=== PATIENT | female | born 1975 | race Caucasian/White ===

== ENCOUNTER 2018-09-20 12:57 | Outpatient (REF) | payer OTHER, SELFPAY ==
--- NOTE | 2018-09-20 11:00 | PAPFT_PTH ---
PATIENT: Skylar Lynn LOC: [facility]#:[id number] AGE/SX: 42/F ROOM: RE09/20/[address]: Ember Cano : 1975 BED: DIS: 09/20/2018 SPEC #: [id number] RECD: 09/21/18 13:02 STATUS: RAFFY LEY #: [id number] NELIA: 09/20/18 11:[address]: Ember Cano DEPT: [facility] Cytology RECD BY: Marisela Shah ENTERED: 09/21/18 13:03 SP TYPE: PAPFT OTHR DR: Hannah Duckworth Tissues: 1 - CX/ENDOCX FOR PAP SMEARS Procedures: PAP THIN PREP/UVM Screening HPV DNA PROBE Comments: [id number]
== END 2018-09-20 13:17 ==
LOC: NCHCN 12:57
PROVIDERS: PCP Family Medicine; Visit Provider Nurse Practitioner
DX: Z00.00 Encounter for general adult medical examination without abnormal findings (principal); Z12.4 Encounter for screening for malignant neoplasm of cervix; Z11.51 Encounter for screening for human papillomavirus (HPV)
CPT/HCPCS: 88142; 87624

== ENCOUNTER 2019-04-18 18:14 | Outpatient (REF) | payer OTHER, SELFPAY ==
[2019-04-18 19:16] LABS: HCT 34.9 % (36.0-46.0); HGB 11.7 g/dL (12.0-15.5); Mean Corp. HGB Concentration 33.5 g/dL (32.0-36.0); Mean Corpuscular Hemoglobin 32.3 pg (27.0-33.0); Mean Corpuscular Volume 96.4 fL (80-95); Mean Platelet Volume 10.1 fL (8.0-11.0); Platelet Count 312 x1000/uL (130-400); RBC 3.62 m/cumm (4.00-5.20); RBC Distribution Width 11.7 % (11.7-14.6); White Blood Cell Count 5.75 k/cumm (4.4-10.8)
[2019-04-18 19:38] LABS: Calculated LDL 80 mg/dL; Cholesterol 161 mg/dL (50-200); HDL Cholesterol 61 mg/dL (40-60); TSH 2.72 uIU/mL (0.36-3.74); Triglyceride 101 mg/dL (30-150)
== END 2019-04-18 18:34 ==
LOC: NCHCN 18:14
PROVIDERS: PCP Family Medicine; Visit Provider Nurse Practitioner
DX: Z00.00 Encounter for general adult medical examination without abnormal findings (principal); L65.9 Nonscarring hair loss, unspecified; Z13.220 Encounter for screening for lipoid disorders
CPT/HCPCS: 80061; 85027; 84443

== ENCOUNTER 2019-04-21 12:25 | Outpatient (REF) | payer OTHER, SELFPAY ==
[2019-04-21 19:23] LABS: Iron 136 ug/dL (50-175); Total Iron Binding Capacity 258 ug/dL (250-450); Transferrin Sat 53 % (15-50)
[2019-04-21 19:43] LABS: Ferritin 52 ng/mL (8-388)
[2019-04-22 09:49] LABS: Vitamin B12 1557 pg/mL (193-986)
== END 2019-04-21 12:45 ==
LOC: NCHCN 12:25
PROVIDERS: PCP Family Medicine; Visit Provider Nurse Practitioner
DX: R53.83 Other fatigue (principal)
CPT/HCPCS: 82607; 82728; 82746; 83540; 83550

== ENCOUNTER → 2022-03-18 00:55 | Outpatient (CLI) | payer OTHER, SELFPAY ==
--- NOTE | 2022-03-18 07:30 | DI.MAMMO_ITS ---
Exam(s) MAMMO SCREENING EXAM: MAMMO SCREENING CLINICAL HISTORY: SCREENING, Z12.39. TECHNIQUE: Bilateral full field digital CC and MLO mammographic images were obtained with 3D tomosyn thesis and utilizing computer aided detection (CAD). COMPARISON: None. This is a baseline mammogram on this 46-year-old patient. FINDINGS: Fibroglandular tissue pattern is moderately dense, this somewhat decreasing the sensitivity of the ma mmogram for finding hidden underlying lesions. There are no CAD designations. There are no new spiculated masses nor malignant appearing microcalcification groups. There is no significant architectural distortion nor skin thickening-retraction. IMPRESSION: No radiographic evidence of malignancy. BI-RADS Category 1 - Negative Breast Density - Category C - Heterogeneously dense Breast density Category C or D implies that the patient has dense breast tissue. Dense breast tissue can make it harder to find cancer on a mammogram. Dense breast tissue is also associated with an incr eased risk of breast cancer. This information about the result of the mammogram report was provided to the patient to raise their awareness. Use this report when you speak with the patient about their risks for breast cancer, which includes their family history. At that time, you may recommend additional screening tests (Ultrasoun d or MRI) as these tests may add significant information. A negative radiographic report should not delay biopsy if a dominant or clinically suspicious mass is present. Up to ten percent of cancers are not identified on mammography. A negative report may reinforce clinical impression. Adenosis and dense breasts may obscure an underlying neoplasm. False positive reports average 6 to 10%. Patient will receive a letter notifying them of these results.
== END ==
PROVIDERS: PCP Family Medicine; Visit Provider Physician Assistant
DX: Z12.31 Encounter for screening mammogram for malignant neoplasm of breast (principal); R92.8 Other abnormal and inconclusive findings on diagnostic imaging of breast
CPT/HCPCS: 77063; 77067

== ENCOUNTER 2024-01-07 13:22 | Outpatient (REF) | payer BC, SELFPAY ==
--- NOTE | 2024-01-07 13:30 | PAPFT_PTH ---
PATIENT: Skylar Lynn LOC: [facility] U#:[id number] AGE/SX: 48/F ROOM: RE01/07/[address]: Skylar Anderson MD : 1975 BED: DIS: 01/07/2024 SPEC #: [id number] RECD: 01/07/24 14:56 STATUS: RAFFY RETang #: [id number] NELIA: 01/07/24 13:[address]: Skylar Anderson DEPT: [facility] Cytology RECD BY: Kenia Land ENTERED: 01/07/24 14:57 SP TYPE: PAPFT OTHR DR: Hannah Duckworth Tissues: 1 - CX/ENDOCX FOR PAP SMEARS Procedures: PAP THIN PREP/UVM Screening HPV DNA PROBE Comments: [id number] (HPV 16 & 18/45)
== END 2024-01-07 13:23 | disposition home or self-care (01) ==
LOC: LBN 13:22
PROVIDERS: PCP Family Medicine; Visit Provider Obstetrics & Gynecology
DX: Z12.4 Encounter for screening for malignant neoplasm of cervix (principal); N72 Inflammatory disease of cervix uteri
CPT/HCPCS: 88142; 87624

== ENCOUNTER 2024-03-29 01:35 | Outpatient (CLI) | payer BC, SELFPAY ==
--- NOTE | 2024-03-29 | DI.MAMMO_ITS ---
Exam(s) MAMMO SCREENING EXAM: MAMMO SCREENING CLINICAL HISTORY: SCREENING MAMMO Z12.31 TECHNIQUE: Mammograms were interpreted according to the usual protocol including computer analysis w [employer] CAD system, tomosynthesis and C-view imaging. COMPARISON: 2021 FINDINGS: The breasts are composed of heterogeneously dense fibroglandular densities, Breast Density category C . No suspicious masses or suspicious microcalcifications are seen. No skin thickening or abnormal axillary lymph nodes are seen. There has been no significant change from prior exams. IMPRESSION: BI-RADS Category 1, Negative mammogram. Yearly screening mammography is recommended. Breast Density Category C, heterogeneously Dense. The mammogram demonstrates the patient's breast tissue is dense. Dense breast tissue is very common a nd is not abnormal but dense breast tissue can make it harder to find cancer on a mammogram. Also, de nse breast tissue may increase breast cancer risk. This information about the result of the mammogram report was provided to the patient to raise their awareness. Use this report when you speak with the patient about their risks for breast cancer, which includes their family history. At that time, you may recommend additional screening tests (Ultrasound or MRI) as they might be useful based on their r isk. A negative radiographic report should not delay biopsy if a dominant or clinically suspicious mass is present. Up to ten percent of cancers are not identified on mammography. A negative report may reinforce clinical impression. Adenosis and dense breasts may obscure an underlying neoplasm. False positive reports average 6 to 10%.
== END 2024-03-29 01:55 ==
LOC: DI 01:36
PROVIDERS: PCP Family Medicine; Visit Provider Physician Assistant
DX: Z12.31 Encounter for screening mammogram for malignant neoplasm of breast (principal)
CPT/HCPCS: 77063; 77067

== ENCOUNTER 2024-07-22 14:22 | Outpatient (REF) | payer BC, SELFPAY ==
[2024-07-22 15:44] LABS: HCT 38.7 % (36.0-46.0); MCH 32.3 pg (27.0-33.0); MCHC 33.6 % (32.0-36.0); MCV 96 fL (80-95); MPV 10.3 fL (8.0-11.0); Platelet Count 293 10^3/uL (130-400); RBC 4.02 10^6/uL (3.93-5.22); RDW 11.6 % (11.7-14.6); RDW-SD 40.8 fL; WBC 4.84 10^3/uL (4.4-10.8)
[2024-07-22 15:55] LABS: ALT 18 U/L (14-59); AST 19 U/L (15-37); Albumin 4.1 g/dL (3.4-5.0); Alkaline Phosphatase 42 U/L (46-116); BUN 14 mg/dL (7-18); Bilirubin, Total 0.42 mg/dL (0.2-1.0); CREATININE 0.8 mg/dL (0.55-1.02); Calcium 9.2 mg/dL (8.5-10.1); Calculated LDL 128 mg/dL (<100); Chloride 104 mmol/L (98-107); Cholesterol 223 mg/dL (<200); Estimated GFR 90.83 (mL/min/1.73m2); Glucose 90 mg/dL (74-106); HDL Cholesterol 83 mg/dL (40-60); Potassium 4.4 mmol/L (3.5-5.1); Sodium 141 mmol/L (136-145); Total Protein 7.4 g/dL (6.4-8.2); Triglyceride 60 mg/dL (<150)
[2024-07-22 16:30] LABS: Hemoglobin A1C 5.2 % (<5.7)
== END 2024-07-22 14:23 | disposition home or self-care (01) ==
LOC: NCHCN 14:22
PROVIDERS: PCP Physician Assistant; Visit Provider Physician Assistant
DX: Z13.220 Encounter for screening for lipoid disorders (principal); D64.9 Anemia, unspecified; Z13.1 Encounter for screening for diabetes mellitus
CPT/HCPCS: 80053; 80061; 85027; 83036

== ENCOUNTER 2024-10-03 11:28 | Day surgery (SDC) | payer BC, SELFPAY ==
--- NOTE | 2024-10-02 08:32 | W.PM.DSUDISC ---
Date of service: 10/03/24 Discharge Plan Disposition Patient Disposition: Home Condition: Good Discharge Details Reason For Visit: Screening colonoscopy Attending Provider: Jesse Thapa Primary Care Provider: Trell Smith Home Meds and New Rx's Prescriptions: Continued lisdexamfetamine [Vyvanse] 20 mg capsule 20 mg PO DAILY escitalopram oxalate 10 MG tablet 10 mg PO DAILY Qty: 30 Discontinued bisacodyl [Dulcolax (bisacodyl)] 5 mg tablet,delayed release (DR/EC) 5 mg PO ONCE Qty: 4 0RF Rx Instructions: Take per colonoscopy instructions provided by ordering providers office polyethylene glycol 3350 17 gram/dose powder 17 g PO ONCE Qty: 238 0RF Rx Instructions: Take per colonoscopy instructions provided by ordering providers office Discharge Instructions Instructions: Colon polyps Additional Instructions: Skylar was great meeting you today, I hope you are comfortable during the procedure and the make a quick recovery. Everything went very smoothly. I did find, and remove a total of 4 polyps today. 2 of these were medium in size, the other 2 were quite small. None of them have any features that are particularly worrisome to the naked eye. All of these will be sent off for testing, once I have the report of that analysis, I will be in touch with recommendations regarding future colonoscopies. Those results usually take about a week or so to get back, but as soon as I have them I will be in touch. 1. If tolerated, consume a soft, low fiber diet for 1-2 days. 2. Do not drive, drink alcohol, operate machinery, make critical decisions, or do activities that require coordination or balance for 24 hours. 3. Because air was put into your colon during the procedure, expelling air from your rectum (passing gas or farting) is normal. 4. You may not have a bowel movement for 1-3 days because of the colonoscopy prep. This is normal. 5. Go directly to the emergency room if you notice any of the following: Develop chills (warm to touch), or if you have a thermometer and your temperature is above 101 Difficulty breathing or difficultly swallowing Persistent vomiting Severe abdominal pain, other than gas cramps Severe chest pain Black, tarry stools Any bleeding ? exceeding one tablespoon 6. Call your physician if the site where your intravenous was started becomes red, swollen, painful, and warm to touch. 7. Your physician has reviewed your pre-procedure medications. Please continue to take those medications as previously ordered. You will be given specific information/education regarding any changes to your medications before leaving. Activity:: Activity as Tolerated Diet:: As Tolerated Discharge Orders Discharge Orders: Discharge Order (Routine); Ordered 10/02/24 Ordered By: Jesse Thapa DS: Diagnosis Discharge Diagnosis (1) Encounter for screening colonoscopy: Status: Acute Asessment and Plan: Follow-up on polypectomy results
--- NOTE | 2024-10-02 08:33 | W.COLOREPORT ---
Date of service: 10/03/24 Time of Service: 14:04 Colonoscopy Report Date of procedure: 10/03/24 Pre-op diagnosis general: Screening colonoscopy Post-op diagnosis procedure note: other (Colon polyps) Procedure: Colonoscopy with polypectomy Surgeon: Jesse Thapa Anesthesia Type: General:No Airway Estimated blood loss (mL): 10 Pathology: other (0.75 cm cecal polyp, 0.5 cm flat ascending colon polyp, 0.25 cm pedunculated polyp at 65 cm, 0.25 cm pedunculated polyp at 60 cm) Complications: None Disposition: same day Indications: Skylar is a 48-year-old woman with a positive screening Cologuard test. She needs a follow-up screening colonoscopy Prep: Miralax/Dulcolax Procedure Start Time: 13:08 Procedure End Time: 13:51 Retraction Time: 34 Findings: 0.75 cm cecal polyp, 0.5 cm flat ascending colon polyp, 0.25 cm pedunculated polyp at 65 cm, 0.25 cm pedunculated polyp at 60 cm Procedure Description: After the induction of anesthesia, and with the patient in left lateral decubitus position, I began by performing an external anorectal exam.? Perineum and skin were normal, as was the anal verge.? There was no evidence of external hemorrhoids.? Next, I performed a digital rectal exam.? I did not appreciate any abnormal findings.? Next, I advanced a colonoscope into the rectal vault.? I performed retroflexion.? This appeared normal.? Using insufflation, I then advanced the colonoscope beyond the rectal folds and into the sigmoid colon before advancing towards the cecum.? The quality of the prep was excellent.? The scope was noted to be in the cecum by identification of the ileocecal valve and appendiceal orifice.? Just to the top portion of the cecum, slightly above the ileocecal valve was a 0.75 cm carpeting polyp. Narrowband imaging was used to assist with the analysis. Features seemed most consistent with adenomatous polyp. This was removed in piecemeal with cold forceps. Periphery of the lesion was cauterized. Resection appeared complete. I then began withdrawing the colonoscope using repeated irrigation as necessary for full evaluation of the colonic mucosa. Another polyp was detected in the ascending colon. This was also quite flat, and I would estimate 0.5 cm in its largest dimension. This was removed with a energize snare polypectomy. There was minimal bleeding. ?2 more polyps were detected at 65, and 60 cm beyond the anal verge. Each of these was less than 0.25 cm in size. Both of these were removed with cold forceps without issues. Once the scope was withdrawn to the level of the rectum, great care was taken to examine portions of the rectal folds.? Finally, the scope was withdrawn and the patient was brought to the same-day surgery recovery unit as the anesthetic wore off. ?The findings and instructions were shared with the patient prior to discharge. Hartford Bowel Prep Hartford Bowel Prep Right Colon: 3 Left Colon: 3 Transverse Colon: 3 Total Score: 9
[2024-10-03 11:42] VITALS: BP 110/84; PULSE 71; RESP 14; TEMP 36.6; O2SAT 98
[2024-10-03] MEDS: Lactated Ringers 1,000 ML 80 ML IV (11:50)
--- NOTE | 2024-10-03 12:27 | W.ANESPRE ---
General Info Date of Service Date Performed: 10/03/24 Height: 5 ft 4 in Weight: 60.9 kg Body Mass Index (BMI): 23.0 Surgical Procedure: Operation Date: 10/03/24 12:35 Proposed Procedure Side Surgeon p Giovani Thapa MD Meds Allergies and Home Medications Allergies Allergy/AdvReac Type Severity Reaction Status Date / Time No Known Allergies Allergy Verified 10/03/24 11:54 Home Medication ?Medication ?Instructions ?Recorded escitalopram oxalate 10 mg tablet 10 mg PO DAILY #30 tabs 06/06/13 lisdexamfetamine 20 mg capsule 20 mg PO DAILY 01/07/24 (Vyvanse) Current Visit Medications: Current Medications Generic Name Dose Route Start Last Admin Trade Name Freq PRN Reason Stop Dose Admin Ringer's Solution 1,000 mls @ 80 mls/hr 10/03/24 06:00 IV 10/03/24 23:59 INFUSION MALDONADO IV Miscellaneous Supplies 1 each 10/03/24 06:00 Iv Access IV 10/03/24 23:59 DIRECTED MALDONADO Sodium Chloride 0 ml 10/03/24 06:00 Normal Saline Flush 10 Ml Syr IV 10/03/24 23:59 PRN PRN Sodium Chloride 0 ml 10/03/24 06:00 Normal Saline 10 Ml Vial IJ 10/03/24 23:59 DIRECTED PRN Sterile Water 0 ml 10/03/24 06:00 Water,Injection,Sterile 10 Ml Vial IJ 10/03/24 23:59 DIRECTED PRN PFSH Active Problems Active Problems: Problem Status Onset Code Encounter for screening colonoscopy Acute Z12.11 Positive colorectal cancer screening using Cologuard test Acute R19.5 Medical History Medical History ADHD Anxiety Surgical History Surgical History Biopsy, Lymph Node L inguinal Negative 2011 Tobacco Smoking/Tobacco Use Status: Former Tobacco Use Passive smoking exposure: No Alcohol Alcohol Intake: current Alcohol intake frequency: a few times a week Substance Use Substance use: Never Substance use type: does not use Prental History History Para Hx # Term Pregnancies 2 Multiple births Hx # Pregnancies Ectopic pregnancies AB induced Hx Number of Living Children 2 AB spontaneous 1 Vital Signs and Lab Results Vital Signs Most Recent Vital Signs in EMR: Most Recent Vital Signs Temp Pulse Resp BP Pulse Ox 36.6 C 71 14 110/84 98 10/03/24 11:42 10/03/24 11:42 10/03/24 11:42 10/03/24 11:42 10/03/24 11:42 Point of Care Results Point of Care Results: POC- Test(urine) Negative 10/03/24 11:50 Lab Results Blood Type / Crossmatch: No Data to Display Complete Blood Count: No Data to Display Complete Metabolic Panel: No Data to Display Liver Function Panel: No Data to Display Coagulation Panel: No Data to Display Cardiac Panel: No Data to Display Arterial Blood Gas: No Data to Display Venous Blood Gas: No Data to Display Pancreas Panel: No Data to Display Thyroid Panel: No Data to Display Infectious Disease: No Data to Display Blood Cultures: No Data to Display Toxicology Panel: No Data to Display Panel: No Data to Display Anesthesia Assessment and Plan Anesthesia History Personal History: No History of Anesthesia Complications Family History: No Family History of Anesthesia Complications Exercise Tolerance Exercise Tolerance: Metabolic Equivalents>4 Pertinent Negatives Pertinent Negatives: No Symptoms of GERD, No Major Cardiovascular Symptoms or Complaints, No Major Pulmonary Symptoms or Complaints and No History of CVA/TIA Cardiac & Pulmonary Exam Cardiac Exam: Normal S1/S2 Heart Sounds Pulmonary Exam: Clear Bilateral Breath Sounds Implantable Cardiac Device Does patient have a Pacemaker or an ICD?: No Airway Exam Known Difficult Airway: No Mallampati Class: 1 Mouth Opening: Normal (> 3cm) Thyromental Distance: Greater than 3 cm Neck Range of Motion: Full ROM Neck Circumference: Normal Teeth Condition: Normal Dentition ASA Classification ASA Score: ASA 2 Emergency Case?: No NPO Status NPO Status: NPO Clears >2 hours, Solids >8 hours Status Status: Negative HCG Anesthesia Plan Resuscitation Status: Full Code Anesthesia Technique: General Anesthesia Airway Planned: Natural Airway Monitors Used: Standard Monitors
[2024-10-03 12:43] VITALS: BMI 23.0
--- NOTE | 2024-10-03 13:24 | BOWEL_PTH ---
PATIENT: Skylar Lynn LOC: [facility] U#:[id number] AGE/SX: 48/F ROOM: RE10/03/[address]: Jesse Thapa MD : 1975 BED: DIS: 10/03/2024 SPEC #: [id number] RECD: 10/03/24 17:02 STATUS: RAFFY RE #: [id number] NELIA: 10/03/24 13:[address]: Jesse Thapa DEPT: Surgical Specimen RECD BY: Marisela Shah ENTERED: 10/03/24 17:03 SP TYPE: Bowel OTHR DR: Trell Smith Tissues: 1 - BIOPSY BOWEL 2 - BIOPSY BOWEL 3 - BIOPSY BOWEL 4 - BIOPSY BOWEL Procedures: GROSS AND MICRO LEVEL 4 Comments: [id number]
[2024-10-03 13:58] VITALS: BP 113/76; PULSE 87; RESP 16; TEMP 36.3; O2SAT 96
--- NOTE | 2024-10-03 14:08 | W.ANESPOSTOP ---
Postoperative Evaluation Date, Time and Location Date Performed: 10/03/24 Time Performed: 14:09 Patient Location: Day Surgery Unit Vital Signs Most Recent Imported Vital Signs: Most Recent Vital Signs Temp Pulse Resp BP Pulse Ox 36.3 C L 87 16 113/76 96 10/03/24 13:58 10/03/24 13:58 10/03/24 13:58 10/03/24 13:58 10/03/24 13:58 Pain Score Most Recent Pain Score: Most Recent Pain Score Pain Level 0 10/03/24 13:58 Assessment Mental Status: Awake (Alert & Oriented to Patient Baseline) Airway and Respiratory Function: Patent airway with normal (patient baseline) respiratory exam Cardiovascular Function: Hemodynamically Stable Hydration Status: Adequately Hydrated Nausea & Vomiting: No Nausea or Vomiting Pain: Pt. Denies Any Pain Peripheral Nerve Block: Patient did not receive a nerve block
[2024-10-03 14:24] VITALS: BP 110/75; PULSE 66; RESP 16; TEMP 36.4; O2SAT 100
== END 2024-10-03 14:47 | disposition home or self-care (01) ==
LOC: SUR 11:28
PROVIDERS: PCP Physician Assistant; Visit Provider Surgery
PROC: 0DJD8ZZ Inspection of Lower Intestinal Tract, Via Natural or Artificial Opening Endoscopic (ICD-10-PCS; CPT 45378; principal; 2024-10-03 12:30)
DX: Z12.11 Encounter for screening for malignant neoplasm of colon (principal); D12.2 Benign neoplasm of ascending colon; D12.4 Benign neoplasm of descending colon; D12.0 Benign neoplasm of cecum
CPT/HCPCS: 45385; 45380; 81025; 88305; J2003; J2405; J2704

== ENCOUNTER 2025-04-18 00:21 | Outpatient (CLI) | payer BC, SELFPAY ==
--- NOTE | 2025-04-18 | DI.MAMMO_ITS ---
Exam(s) MAMMO SCREENING EXAM: MAMMO SCREENING CLINICAL HISTORY: Z12.31 screening TECHNIQUE: Bilateral full field digital CC and MLO mammographic images were obtained with 3D tomosynthesis and utilizing computer aided detection (CAD). COMPARISON: Comparison is made with prior examinations. FINDINGS: Masses/Architectural Distortion: No suspicious masses or areas of architectural distortion are present. Microcalcifications: No suspicious pleomorphic-type are seen. Skin Thickening/Nipple Retraction: None. IMPRESSION: 1. No significant interval change with no specific features of malignancy noted. 2. Unless there is more urgent need, screening mammography is recommended, as per [place] [employer] guidelines. BI-RADS Category 1 - Negative Breast Density - Category C - The breast are heterogeneously dense, which may obscure small masses. Breast density Category C or D implies that the patient has dense breast tissue. Dense breast tissue can make it harder to find cancer on a mammogram. Dense breast tissue is also associated with an increased risk of breast cancer. This information about the result of the mammogram report was provided to the patient to raise their awareness. Use this report when you speak with the patient about their risks for breast cancer, which includes their family history. At that time, you may recommend additional screening tests (Ultrasound or MRI) as these tests may add significant information. A negative radiographic report should not delay biopsy if a dominant or clinically suspicious mass is present. Up to ten percent of cancers are not identified on mammography. A negative report may reinforce clinical impression. Adenosis and dense breasts may obscure an underlying neoplasm. False positive reports average 6 to 10%. Patient will receive a letter notifying them of these results.
== END 2025-04-18 00:41 ==
LOC: DI 00:21
PROVIDERS: PCP Physician Assistant; Visit Provider Obstetrics & Gynecology
DX: Z12.31 Encounter for screening mammogram for malignant neoplasm of breast (principal)
CPT/HCPCS: 77063; 77067